=== PATIENT | female | born 1995 | race Caucasian/White ===

== ENCOUNTER → 2018-06-24 | Outpatient (CLI) | payer OTHER ==
[~2018-06-24] MED LIST: OCELLA 3 MG-0.01 TAB PO
== END ==
LOC: COL.RAD 09:45
DX: R10.11 Right upper quadrant pain (principal)

== ENCOUNTER 2024-01-30 19:20 | Emergency (ER) | payer OTHER ==
[~2024-01-30] VITALS: Ht 160 cm; Wt 90.9 kg
[~2024-01-30 19:20] MED LIST changes: +ELURYNG VAGINA1 EACH VG; +PRILOSEC 20MG20 MG PO
[2024-01-30 19:48] VITALS: TEMP 98.4
[2024-01-30] MEDS ORDERED: Ibuprofen 600 MG TAB PO ONE (20:30)
[2024-01-30 21:25] VITALS: BP 136/96; PULSE 110
== END 2024-01-30 21:25 | disposition home or self-care (01) ==
LOC: COL.ER 19:20
DX: S63.501A Unspecified sprain of right wrist, initial encounter (principal); S53.401A Unspecified sprain of right elbow, initial encounter; W01.0XXA Fall on same level from slipping, tripping and stumbling without subsequent striking against object, initial encounter; Y93.01 Activity, walking, marching and hiking; Y92.39 Other specified sports and athletic area as the place of occurrence of the external cause